=== PATIENT | female | born 1990 | race African-American/Black ===

== ENCOUNTER 2018-05-23 16:51 | Emergency (ER) | payer OTHER | END 2018-05-23 19:43 | disposition other institution (70) | LOC: ED 16:51 | DX: Z02.89 Encounter for other administrative examinations (principal) ==

== ENCOUNTER 2018-05-23 16:51 | Emergency (ER) | payer SELFPAY ==
[~2018-05-23] VITALS: Ht 170.2 cm; Wt 72.6 kg
[2018-05-23 16:55] VITALS: Ht 170.2 cm; Wt 72.6 kg
[2018-05-23 18:16] LABS: BASOPHIL % 0.2 % (0-2); PLATELET COUNT 334 x10^3mcL (130-400)
[2018-05-23 18:19] LABS: RED CELL DISTRIBUTION WIDTH 14.9 % (11.5-14.5)
[2018-05-23 18:20] LABS: CALCIUM 8.9 mg/dL (8.5-10.1); CARBON DIOXIDE 20.6 mmol/L (21-32); CHLORIDE SERUM 104 mmol/L (98-107); GFR1 > 60 mL/min; GLUCOSE SERUM 116 mg/dL (74-106); POTASSIUM SERUM 3.5 mmol/L (3.5-5.1); SODIUM SERUM 138 mmol/L (136-145)
[2018-05-23 18:24] LABS: ALBUMIN 4.3 g/dL (3.4-5.0); ALKALINE PHOSPHATASE 99 U/L (46-116); ALT/SGPT 46 U/L (14-59); AST/SGOT 31 U/L (15-37); BILIRUBIN TOTAL 0.3 mg/dL (0.20-1.00)
[2018-05-23 18:29] LABS: CHOLESTEROL 128 mg/dL (<200); TOTAL PROTEIN, SERUM 8.3 g/dL (6.4-8.2)
[2018-05-23 18:51] LABS: AMPHETAMINE QUAL UR POSITIVE (See below)
[2018-05-23 19:47] VITALS: BP 149/89
== END 2018-05-23 19:43 | disposition other institution (70) ==
LOC: ED 16:51
PROVIDERS: Emergency Medicine
DX: T43.625A Adverse effect of amphetamines, initial encounter (principal); Y92.89 Other specified places as the place of occurrence of the external cause
CPT/HCPCS: 83880; G0480; J2060